=== PATIENT | female | born 1980 | race Two or more races ===

== ENCOUNTER 2023-05-12 16:37 | Emergency (ER) | payer OTHER ==
[~2023-05-12] VITALS: Ht 175.3 cm; Wt 97.1 kg
[2023-05-12] MEDS ORDERED: DUI500 PO (19:33)
== END 2023-05-12 19:36 | disposition home or self-care (01) ==
LOC: ER 16:37
PROVIDERS: General Practice
DX: R53.81 Other malaise (principal); J03.90 Acute tonsillitis, unspecified; Z20.822 Contact with and (suspected) exposure to COVID-19